=== PATIENT | female | born 1950 | race Native Hawaiian/Other Pacific Islander ===

== ENCOUNTER 2016-07-07 08:08 | Emergency (ER) | payer OTHER ==
[~2016-07-07] VITALS: Ht 162.6 cm; Wt 73.9 kg
[2016-07-07] MEDS ORDERED: LISI20TA24 PO (08:26)
[2016-07-07 08:46] LABS: POTASSIUM 3.5 mmol/L (3.6-5.2); SODIUM 133 mmol/L (136-145)
[2016-07-07 08:47] LABS: PLATELET COUNT 395 K/uL (152-353)
[2016-07-07 08:48] LABS: PARTIAL THROMBOPLASTIN TIME 23.9 SECONDS (24.5-33.6)
[2016-07-07 10:42] VITALS: BP 98/56; TEMP 98
== END 2016-07-07 10:45 | disposition home or self-care (01) ==
LOC: ED 08:08
DX: R07.89 Other chest pain (principal); D72.829 Elevated white blood cell count, unspecified; R00.0 Tachycardia, unspecified
CPT/HCPCS: 80053; 81000; 82550; 84484; 85027; 85610; 85730; 86318; 93005; 99284

== ENCOUNTER 2018-03-20 07:53 | Outpatient (CLI) | payer OTHER ==
[~2018-03-20 07:53] MED LIST: LISI20TA24 PO
== END 2018-03-20 19:49 | disposition home or self-care (01) ==
LOC: MAMMO 07:53
DX: Z12.31 Encounter for screening mammogram for malignant neoplasm of breast (principal)

== ENCOUNTER 2019-01-04 16:08 | Outpatient (CLI) | payer OTHER | END 2019-01-04 23:55 | disposition home or self-care (01) | LOC: RAD 16:08 | DX: M25.512 Pain in left shoulder (principal) ==

== ENCOUNTER 2019-03-21 13:08 | Outpatient (CLI) | payer OTHER | END 2019-03-21 23:32 | disposition home or self-care (01) | LOC: MRI 13:08 | DX: M54.2 Cervicalgia (principal); M25.512 Pain in left shoulder ==

== ENCOUNTER 2019-03-22 15:21 | Outpatient (CLI) | payer OTHER | END 2019-03-22 23:21 | disposition home or self-care (01) | LOC: MAMMO 15:21 | DX: Z12.31 Encounter for screening mammogram for malignant neoplasm of breast (principal) ==

== ENCOUNTER 2019-11-07 13:29 | Outpatient (CLI) | payer OTHER | END 2019-11-07 19:19 | disposition home or self-care (01) | LOC: RAD 13:29 | DX: Z01.818 Encounter for other preprocedural examination (principal); Z12.11 Encounter for screening for malignant neoplasm of colon; R13.19 Other dysphagia; K63.5 Polyp of colon ==

== ENCOUNTER 2020-04-01 11:30 | Outpatient (CLI) | payer OTHER | END 2020-04-01 23:35 | disposition home or self-care (01) | LOC: MAMMO 11:30 | DX: Z12.31 Encounter for screening mammogram for malignant neoplasm of breast (principal) ==

== ENCOUNTER 2022-03-25 08:40 | Outpatient (CLI) | payer OTHER | END 2022-03-25 23:08 | disposition home or self-care (01) | LOC: RAD 08:40 | PROVIDERS: ATTEND Registered Nurse | DX: R05.1 Acute cough (principal) ==

== ENCOUNTER 2022-04-05 09:31 | Outpatient (CLI) | payer OTHER | END 2022-04-05 19:38 | disposition home or self-care (01) | LOC: RAD 09:31 | PROVIDERS: ATTEND Registered Nurse | DX: M54.12 Radiculopathy, cervical region (principal) ==

== ENCOUNTER 2022-07-19 08:32 | Outpatient (CLI) | payer OTHER | END 2022-07-19 19:48 | disposition home or self-care (01) | LOC: MRI 08:32 | PROVIDERS: ATTEND Registered Nurse | DX: M50.023 Cervical disc disorder at C6-C7 level with myelopathy (principal); M54.16 Radiculopathy, lumbar region ==

== ENCOUNTER 2022-07-20 08:39 | Outpatient (CLI) | payer OTHER | END 2022-07-20 21:53 | disposition home or self-care (01) | LOC: MRI 08:39 | PROVIDERS: ATTEND Registered Nurse | DX: M25.552 Pain in left hip (principal); M25.551 Pain in right hip; M50.023 Cervical disc disorder at C6-C7 level with myelopathy; M54.16 Radiculopathy, lumbar region ==

== ENCOUNTER 2022-07-21 08:39 | Outpatient (CLI) | payer OTHER | END 2022-07-21 19:13 | disposition home or self-care (01) | LOC: MRI 08:39 | PROVIDERS: ATTEND Registered Nurse | DX: M25.511 Pain in right shoulder (principal); M25.512 Pain in left shoulder ==

== ENCOUNTER 2022-08-09 12:36 | Outpatient (CLI) | payer OTHER | END 2022-08-09 19:05 | disposition home or self-care (01) | LOC: MRI 12:36 | PROVIDERS: ATTEND Nurse Practitioner Family | DX: M25.461 Effusion, right knee (principal) ==

== ENCOUNTER 2022-09-09 08:54 | Outpatient (CLI) | payer OTHER | END 2022-09-09 20:41 | disposition home or self-care (01) | LOC: MAMMO 08:54 | PROVIDERS: ATTEND Registered Nurse | DX: Z12.31 Encounter for screening mammogram for malignant neoplasm of breast (principal) ==

== ENCOUNTER 2022-12-14 11:17 | Outpatient (CLI) | payer OTHER | END 2022-12-14 19:15 | disposition home or self-care (01) | LOC: RAD 11:17 | PROVIDERS: ATTEND Nurse Practitioner Family | DX: R11.0 Nausea (principal) ==

== ENCOUNTER 2023-01-24 08:25 | Outpatient (CLI) | payer OTHER ==
[~2023-01-24 08:25] MED LIST changes: +B-12 TR 1000 MC1 TAB PO; +EZETIMIBE10 MG PO; +GLIP10TA55 PO; +LISI5TAB10 PO; +OMEPRAZOLE DR20 MG PO
== END 2023-01-24 22:59 | disposition home or self-care (01) ==
LOC: CT 08:25
PROVIDERS: ATTEND Nurse Practitioner Family
DX: R42 Dizziness and giddiness (principal)
CPT/HCPCS: Q9963